=== PATIENT | female | born 1965 | race Caucasian/White ===

== ENCOUNTER 2024-11-20 17:26 | Inpatient (IN) | payer OTHER, SELFPAY ==
[2024-11-20] VITALS (38 sets, daily range): BP systolic 95–129; BP diastolic 54–83; BMI 25.4
[2024-11-20 07:47] LABS: Hematocrit 47.6 % (37.0-47.0); Hemoglobin 15.7 g/dL (12.0-16.0); Mean Corp Hgb Conc. 33.0 g/dL (33.0-37.0); Mean Corpuscular Volume 87.5 fL (81.0-99.0); Platelet Count 406 10^3/uL (130-400); Red Cell Dist. Width 13.0 % (11.5-14.5)
[2024-11-20 08:01] LABS: ALT (SGPT) 58 U/L (0-35); AST (SGOT) 35 U/L (14-36); Albumin 4.7 g/dl (3.5-5.0); Alkaline Phosphatase 79 U/L (38-126); Blood Urea Nitrogen 18 mg/dl (7-17); Calcium 9.9 mg/dl (8.4-10.2); Carbon Dioxide 25 mmol/L (22-30); Chloride 107 mmol/L (98-107); Estimated Creatinine Clearance 61 ml/min; Glucose 86 mg/dl (70-99); INR 1.07; PT 14.2 Sec (11.4-14.6); Potassium 4.2 mmol/L (3.5-5.1); Sodium 138 mmol/L (135-145); Total Protein 7.7 g/dl (6.3-8.2); eGFR > 60.00
[2024-11-20 08:03] LABS: APTT 26.8 Sec (23.4-35.0)
--- NOTE | 2024-11-20 08:59 | W.SUR.PREOP ---
Pre-Operative Surgical Note
-
I have examined this patient prior to the performance of the scheduled procedure.
The patient's condition is unchanged from the time of the current History and
Physical and the patient is able to undergo the scheduled procedure.
[2024-11-20] MEDS: DILAUDID 0.25 MG IV (10:00)
--- NOTE | 2024-11-20 10:37 | OR.RPT ---
Operative Report
Operative Report
Date of Operation: 11/20/2024
Pre Op Diagnosis: Poorly healing right dorsal foot wound
Post Op Diagnosis: Poorly healing right dorsal foot wound
Procedure:
1. Diagnostic right lower extremity arteriogram
2. Selective catheterization popliteal artery from right femoral artery access
3. Ultrasound-guided percutaneous antegrade access to the right superficial femoral artery origin
Surgeon: Tod King III, MD
Associate Account Director: Yung Salvador MD PGY2
Anesthesia: Sedation with local
Fluoroscopy:
11.2 min
24 mGy
3.1 gy.cm2
Complications: None
Estimated Blood Loss: Less than 10 cc
History and Indications for Procedure: 59-year-old female with multiple PAD risk factors and a nonhealing right dorsal foot wound. 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 She was brought to the
operating room for formal arteriogram and possible endovascular intervention.
Procedure in Detail: Linda Sweet was correctly identified and placed supine on the operating table. After adequate induction of anesthesia the bilateral groins were prepped and draped in the usual sterile fashion. A timeout was performed with the
nursing and anesthesia staff confirming the patient's identity as well as the nature and laterality of the procedure.
The right and femoral bifurcation common femoral artery was identified under ultrasound guidance. The artery was patent. The superior and inferior aspects of the femoral head were identified with radiographic guidance and marked at the skin level.
The proposed puncture site was infiltrated with local anesthesia. Under ultrasound guidance we accessed the right superficial femoral artery origin at the femoral bifurcation with a micropuncture needle and upsized to a 5 Fr sheath over a Bentson
wire.
RIGHT LOWER EXTREMITY:
Superficial femoral artery: Patent with no stenosis identified
Popliteal artery: Patent with no stenosis identified
Anterior tibial artery: Patent. Near the ankle the anterior tibial becomes heavily diseased and diminutive. Dorsalis pedis artery appears to be occluded or threadlike in appearance
Tibioperoneal trunk: Flush occluded at the origin
Peroneal artery: Occluded at the origin but reconstitutes proximally and is patent to the ankle. Posterior branch appears to be patent. The more anterior branch appears to be segmentally occluded
Posterior tibial artery: Occluded at its origin but reconstitutes proximally. Sluggish flow but patent to the ankle. Small vessel disease in the plantar distribution is identified
ENDOVASCULAR INTERVENTION: Systemic heparin was administered. Under roadmap guidance I selected the below the knee popliteal artery with a quick cross and Glidewire. Under magnification views examined the tibioperoneal trunk. The tibioperoneal
trunk was indeed flush occluded with no stump to engage. Small collateral branches were identified at the origin of the TP trunk but no stump of artery was present to engage for possible endovascular intervention. The proximal posterior tibial
artery and peroneal artery were identified as reconstituted.
Satisfied with this diagnostic information we then concluded the procedure. All wires and catheters were removed from the 5 German sheath. Protamine was administered. The sheath was secured in place with the plan to pull it in the recovery area.
The patient tolerated the procedure well and was taken to the recovery area in stable condition.
Attestation: I was present and responsible for the entire procedure.
Signed:
Tod King III, MD
Vascular Surgery
[facility]
--- NOTE | 2024-11-20 12:33 | W.PN.UPDATE ---
Update Note
Progress Note Update
Notified of change in Doppler exam in the right foot following RLE angio
Stat duplex obtained and shows prox R SFA occlusion with distal reconstitution
No closure device was used and manual pressure was applied to the 5Fr sheath access site
On exam she is in no distress
No pain in the foot
Gross motor function intact
Dopp pop signal and proximal AT signal at the aden but cannot find Dopp signals in the foot
Will plan to take patient back to the OR now for angio and possible endo intervention on the right SFA occlusion. May need open exploration/repair
Discussed with patient/mother/brother at bedside
[2024-11-20 13:32] LABS: ACT-LR - POC 242 Seconds (116-155)
--- NOTE | 2024-11-20 15:37 | W.PN.UPDATE ---
Update Note
Progress Note Update
Admission H&P:
59 yo female
Admitted to now following RLE angio that was complicated by acute occlusion of the SFA at the antegrade access site
Successful endovascular intervention subsequently to re-establish SFA patency
Planning for DAPT now and on discharge
Observation overnight
Will check right foot Xray at family's request
Check fasting lipid panel
[2024-11-20] MEDS: PLAVIX 300 MG PO (16:02)
[2024-11-20] MEDS: TYLENOL 650 MG PO (16:02)
[2024-11-20] MEDS: NSS 1000 IV (18:07)
[2024-11-20] MEDS: NICODERM TRANSDERMAL 14 MG TRANSDERM (18:08)
--- NOTE | 2024-11-20 19:00 | OR.RPT ---
Operative Report
Operative Report
Date of Operation: 11/20/2024
Pre Op Diagnosis: Acute right superficial femoral artery occlusion following right lower extremity diagnostic arteriogram via antegrade access
Post Op Diagnosis: Acute right superficial femoral artery occlusion following right lower extremity diagnostic arteriogram via antegrade access
Procedure:
1. Balloon angioplasty and stenting of right superficial femoral artery (overlapping LifeStents 5 mm x 150 mm distal; 5 mm x 80 mm proximal)
2. Pharmacomechanical thrombectomy of right distal superficial femoral artery/popliteal artery thrombus using tPA and AngioJet catheter (Solent)
3. Balloon angioplasty of right popliteal artery (4 mm x 100 mm)
4. Diagnostic aortobiiliac arteriogram
5. Diagnostic right lower extremity arteriogram
6. Ultrasound-guided percutaneous access to the left common femoral artery.
Surgeon: Tod King III, MD
[employer] Controller: Yung Salvador MD PGY2
Anesthesia: Sedation with local
Fluoroscopy:
42.8 min
158 mGy
28.55 gy.cm2
Complications: None
Estimated Blood Loss: Less than 10 cc
History and Indications for Procedure: 59-year-old female who had undergone a diagnostic arteriogram of the right lower extremity via antegrade arterial access in the right groin. She had an acute change in her Doppler exam in the recovery area and
a stat duplex ultrasound revealed a right superficial femoral artery occlusion with distal reconstitution. I brought her back to the operating room for emergent endovascular interrogation and intervention.
Procedure in Detail: Linda Cole was correctly identified and placed supine on the operating table. After adequate induction of anesthesia the bilateral groins were prepped and draped in the usual sterile fashion. A timeout was performed with the
nursing and anesthesia staff confirming the patient's identity as well as the nature and laterality of the procedure.
The left common femoral artery was identified under ultrasound guidance. The artery was patent. The superior and inferior aspects of the femoral head were identified with radiographic guidance and marked at the skin level. The proposed puncture site
was infiltrated with local anesthesia. Under ultrasound guidance we accessed the left common femoral artery with a micropuncture needle and upsized to a 5 Fr sheath over a Firework wire. The wire and a Shepherds hook flush catheter were advanced into
the distal abdominal aorta and a diagnostic aorto-biiliac arteriogram was performed:
AORTO-ILIAC ARTERIOGRAM:
Aorta: Patent with no significant stenosis identified
Right common iliac artery: Small diameter. Patent with no significant stenosis identified
Right external iliac artery: Small diameter. Patent with no significant stenosis identified
Left common iliac artery: Small diameter. Patent with no significant stenosis identified
Left external iliac artery: Small diameter. Patent with no significant stenosis identified
Under roadmap guidance using a Glidewire and the Shepherds hook catheter we selected the right common iliac artery followed by the external iliac artery and then the common femoral artery. A catheter was tracked up and over the aortic bifurcation
and placed in the common femoral artery. A diagnostic right lower extremity arteriogram was then performed which demonstrated the following:
RIGHT LOWER EXTREMITY:
Common femoral artery: Patent with no stenosis identified
Profunda femoral artery: Patent with no stenosis identified
Superficial femoral artery: Patent stump but abruptly occluded thereafter.
Popliteal artery: Reconstituted above the knee.
ENDOVASCULAR INTERVENTION: Systemic heparin was administered and a therapeutic ACT was confirmed. Exchanged out for a 6 Fr 45 cm sheath over a Storq wire. Selected the right superficial femoral artery stump under roadmap guidance. A Quickcross
catheter and Glidewire were easily navigated through the SFA stump and throughout the superficial femoral artery without any resistance or doubling up of the wire. An additional arteriogram was performed once we had crossed the proximal occlusion
and were in the mid SFA that appeared to be consistent with a long dissection flap throughout the SFA terminating in the above-knee popliteal artery. We then navigated the wire and catheter into the popliteal artery behind the knee. I then brought
into position a long 4 mm x 220 mm angioplasty balloon. The entire length of superficial femoral artery was treated with this 4 mm balloon, holding it in place at nominal pressure for 3-minute inflation. Subsequent arteriogram demonstrated a now
patent superficial femoral artery but evidence luminal irregularity in the proximal segment near/at the access site was identified and evidence of the dissection flap remained distal to this. I then proceeded with treating the proximal superficial
femoral artery with stenting. Under roadmap guidance I brought into position an 5 mm x 80 mm Life Stent. This was positioned in the desired location under roadmap guidance across the proximal superficial femoral artery and deployed. The stent was
profiled with the 4 mm angioplasty balloon. Subsequent arteriogram demonstrated a patent stent with no filling defects or residual stenosis however the distal dissection flap remained which appeared to be flow-limiting. I then treated the
remainder of the abnormally appearing SFA with a 5 mm x 150 mm Life Stent. The stent was used to treat the entire length of superficial femoral artery down to where the popliteal artery above the knee appeared radiographically normal. The stent
was positioned in the desired location, deployed and profiled with a 4 mm angioplasty balloon.
Subsequent arteriogram revealed a patent stent but there was slow flow distally and there appeared to be a luminal filling defect consistent with thrombus distal to the stent in the above-knee popliteal artery. Thrombus was also identified in the
proximal anterior tibial artery. I navigated the quick cross catheter to the distal popliteal artery below the knee over the wire. 2 mg of tPA were administered into the anterior tibial artery to treat the proximal thrombus. 4 mg of tPA was
administered through the quick cross to the thrombus just distal to the stent. Subsequent arteriogram demonstrated a significantly improved result in the proximal anterior tibial artery with clearance of the thrombus however a filling defect
remained in the popliteal artery distal to the stent. I exchanged out for a [employer] wire and then brought into position the AngioJet Solent catheter. Mechanical thrombectomy was then performed on the popliteal artery using the AngioJet catheter.
Several passes were made under roadmap guidance. Subsequent arteriogram demonstrated an improved result with a now patent popliteal artery and no residual stenosis remaining however there was spasm of the popliteal artery in the treated segment.
Nitro was administered through a quick cross catheter to the popliteal artery which did not immediately resolve the spasm. I then brought into position a 4 mm x 100 mm angioplasty balloon and this was positioned across the popliteal artery under
roadmap guidance. The balloon was gently inflated to subnominal pressure and held in place for 1 minute. Subsequent arteriogram demonstrated a significantly improved result with a patent popliteal artery and no evidence of filling defects or
stenosis. Collateral branches were seen off the popliteal artery that reconstituted the posterior tibial and peroneal arteries. Once again identified was the tibioperoneal trunk occlusion. Also identified was a patent anterior tibial artery
proximally which became severely diseased and occluded distally. The peroneal artery was patent to the ankle. The posterior tibial artery demonstrated sluggish flow but was patent at the ankle with plantar branch flow into the foot. Significant
small vessel disease was once again demonstrated as seen on the initial arteriogram.
Satisfied with this result we concluded the procedure. The sheath tip was pulled back into the left external iliac artery. Protamine was administered. The sheath was pulled and direct manual pressure was held over the left femoral puncture site
until hemostasis was achieved. A sterile dressing was applied.
At the conclusion of the case the patient had a monophasic Doppler signal over the right posterior tibial artery at the ankle. Her foot and toes were pink with intact capillary refill less than 2 seconds.
The patient tolerated the procedure well and was taken to the recovery area in stable condition.
Attestation: I was present and responsible for the entire procedure.
Signed:
Tod King III, MD
Vascular Surgery
[facility]
--- NOTE | 2024-11-20 20:02 | W.PN.UPDATE ---
Update Note
Progress Note Update
Resting comfortably
Right foot is warm/pink. Brisk cap refill
Easily audible right PT signal at the ankle
Bilateral groin sites soft and nontender.
Monitor overnight
DAPT
[2024-11-20] MEDS: HEPARIN 5000 UNITS SC (23:23)
[2024-11-20] MEDS: ASPIR LOW (ENTERIC COATED) 81 MG PO (23:24)
[2024-11-20] MEDS: ZINC 50 MG PO (23:24)
[2024-11-21 03:00] VITALS: BP 112/60
[2024-11-21] MEDS: NSS 1000 IV (06:23)
[2024-11-21 07:38] VITALS: BP 111/70
[2024-11-21 07:55] LABS: Hematocrit 43.5 % (37.0-47.0); Hemoglobin 14.4 g/dL (12.0-16.0); Mean Corp Hgb Conc. 33.1 g/dL (33.0-37.0); Mean Corpuscular Volume 88.8 fL (81.0-99.0); Platelet Count 349 10^3/uL (130-400); Red Cell Dist. Width 12.9 % (11.5-14.5)
[2024-11-21 08:14] LABS: INR 1.13; PT 14.8 Sec (11.4-14.6)
[2024-11-21 08:15] LABS: APTT 28.3 Sec (23.4-35.0)
[2024-11-21 08:51] LABS: ALT (SGPT) 39 U/L (0-35); AST (SGOT) 30 U/L (14-36); Albumin 3.9 g/dl (3.5-5.0); Alkaline Phosphatase 70 U/L (38-126); Blood Urea Nitrogen 13 mg/dl (7-17); Calcium 9.0 mg/dl (8.4-10.2); Carbon Dioxide 16 mmol/L (22-30); Chloride 113 mmol/L (98-107); Estimated Creatinine Clearance 61 ml/min; Glucose 55 mg/dl (70-99); HDL Cholesterol 48 mg/dl; LDL Cholesterol, Calculated 166 mg/dl; Potassium 4.5 mmol/L (3.5-5.1); Sodium 139 mmol/L (135-145); Total Protein 6.1 g/dl (6.3-8.2); Very Low Density Lipoprotein 17 mg/dl (0-30); eGFR > 60.00
[2024-11-21] MEDS: HEPARIN 5000 UNITS SC (09:34)
[2024-11-21] MEDS: PLAVIX 75 MG PO (09:36)
[2024-11-21 10:42] LABS: Glycohemoglobin (HgbA1c) 5.7 % (4.0-5.6)
--- NOTE | 2024-11-21 11:02 | W.PN.VS ---
Today's Communication / Plan
-
dc home
Assessment/Plan
-
59F s/p bilateral lower extremity angiogram POD 1
-ASA/Plavix
-Diet
-DC home
Subjective Data
-
Date of Service: November 21, 2024
Seen and examined at bedside. MARIAMO. Resting comfortably without pain in feet
Objective Data
-
Vital Signs
Temp Pulse Resp BP Pulse Ox
98.1 F 99 16 111/70 98
11/21/24 07:38 11/21/24 07:38 11/21/24 07:38 11/21/24 07:38 11/21/24 07:38
Intake and Output
11/20/24 11/21/24 11/22/24
06:59 06:59 06:59
Intake Total 600 / 600
Balance 600 / 600
Intake:
Oral fluids 240 / 240
IV fluids (Total) 360 / 360
Normosol 200 / 200
normal saline 160 / 160
Other:
How many times incontinent 1
SATURATED amount urine
Number of approximated MODERATE 3
amounts of urine
Lab Results
11/21/24 07:33
11/21/24 07:33
Calcium 9.0 mg/dl (8.4-10.2) 11/21/24 07:33
Total Bilirubin 0.7 mg/dl (0.2-1.3) 11/21/24 07:33
Direct Bilirubin 0.2 mg/dl (0.0-0.4) 11/21/24 07:33
AST 30 U/L (14-36) 11/21/24 07:33
ALT 39 U/L (0-35) H 11/21/24 07:33
Alkaline Phosphatase 70 U/L (38-126) 11/21/24 07:33
Total Protein 6.1 g/dl (6.3-8.2) L D 11/21/24 07:33
Albumin 3.9 g/dl (3.5-5.0) 11/21/24 07:33
Physical Exam
-
bilateral groins: soft, no hematoma
RLE: dorsal foot wound
--- NOTE | 2024-11-21 11:57 | CM ---
Initial assessment completed with pt.
Pt is a 59yr old who was admitted post surgical procedure.
Pt is indep, working, and drives at baseline.
Pt for dc today with no identified needs.
PCP; Hollie Roque
Pharm; [facility]
PLAN; home with no needs Identified
--- NOTE | 2024-11-21 12:58 | W.PN.VS ---
Assessment/Plan
-
59F s/p bilateral lower extremity angiogram POD 1
-ASA/Plavix
-Diet
-DC home
Subjective Data
-
Date of Service: November 21, 2024
seen and examined at bedside. ERIC.
Objective Data
-
Vital Signs
Temp Pulse Resp BP Pulse Ox
98.1 F 99 16 111/70 98
11/21/24 07:38 11/21/24 07:38 11/21/24 07:38 11/21/24 07:38 11/21/24 07:38
Intake and Output
11/20/24 11/21/24 11/22/24
06:59 06:59 06:59
Intake Total 600 / 600
Balance 600 / 600
Intake:
Oral fluids 240 / 240
IV fluids (Total) 360 / 360
Normosol 200 / 200
normal saline 160 / 160
Other:
How many times incontinent 1
SATURATED amount urine
Number of approximated MODERATE 3
amounts of urine
Lab Results
11/21/24 07:33
11/21/24 07:33
Calcium 9.0 mg/dl (8.4-10.2) 11/21/24 07:33
Total Bilirubin 0.7 mg/dl (0.2-1.3) 11/21/24 07:33
Direct Bilirubin 0.2 mg/dl (0.0-0.4) 11/21/24 07:33
AST 30 U/L (14-36) 11/21/24 07:33
ALT 39 U/L (0-35) H 11/21/24 07:33
Alkaline Phosphatase 70 U/L (38-126) 11/21/24 07:33
Total Protein 6.1 g/dl (6.3-8.2) L D 11/21/24 07:33
Albumin 3.9 g/dl (3.5-5.0) 11/21/24 07:33
--- NOTE | 2024-11-21 13:00 | W.DS.TRANS ---
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
-
Discharge Instructions:
Discharge Diagnosis/Procedures Right lower extremity angiogram
Diet As tolerated
Activity No strenuous activity
Driving Restrictions No driving for 48 hours
Bathing Restrictions OK to Shower
Instructions:
Stand-Alone Forms: Vascular Surg Discharge Instr
Changes to Home Medications: Yes
Discharge Medications:
DC Medications w/original date entered in [facility]
acetaminophen 500 mg tablet 500 mg PO Q6H PRN Headache 11/18/24
aspirin 81 mg tablet,delayed release 81 mg PO HS Blood Clot Prevention/Tx 11/18/24
trazodone 50 mg tablet 50 mg PO HS PRN Insomnia 11/18/24
zinc acetate 50 mg (zinc) capsule 50 mg PO HS Supplement 11/18/24
nicotine 14 mg/24 hr daily transdermal patch 1 patch transdermal Q24H Smoking cessation 11/20/24
clopidogrel 75 mg tablet 75 mg PO DAILY Blood clot prevention/tx 90 days #90 tabs 11/21/24
Home Medication Changes
Pending Results: No
Total time spent discharging patient (in min): 10
[2024-11-21 13:05] VITALS: BP 108/66
== END 2024-11-21 13:32 | disposition home or self-care (01) | DRG 271 ==
LOC: 2 NORTH 17:26
PROVIDERS: ADMITTING PHYSICIAN Surgery Vascular Surgery; PRIMARYCARE PHYSICIAN Nurse Practitioner
PROC: 04CM3ZZ Extirpation of Matter from Right Popliteal Artery, Percutaneous Approach (ICD-10-PCS; 2024-11-20)
PROC: B41D1ZZ Fluoroscopy of Aorta and Bilateral Lower Extremity Arteries using Low Osmolar Contrast (ICD-10-PCS; 2024-11-20)
PROC: 047K3EZ Dilation of Right Femoral Artery with Two Intraluminal Devices, Percutaneous Approach (ICD-10-PCS; 2024-11-20)
PROC: B41F1ZZ Fluoroscopy of Right Lower Extremity Arteries using Low Osmolar Contrast (ICD-10-PCS; 2024-11-20)
PROC: 3E05317 Introduction of Other Thrombolytic into Peripheral Artery, Percutaneous Approach (ICD-10-PCS; 2024-11-20)
PROC: 047M3ZZ Dilation of Right Popliteal Artery, Percutaneous Approach (ICD-10-PCS; 2024-11-20)
DX: I70.201 Unspecified atherosclerosis of native arteries of extremities, right leg (principal); I74.3 Embolism and thrombosis of arteries of the lower extremities
CPT/HCPCS: 36246; 37186; 37226; 73630; 75625; 75710; 80053; 80061; 82248; 83036; 85027; 85610; 85730; 86850; 86900; 86901; 93005; 93925; C1725; C1757; C1769; C1876; C1894; J2997; Q9967

== ENCOUNTER → 2024-12-15 08:50 | Outpatient (REF) | payer OTHER, SELFPAY | LOC: RAD 08:50 | PROVIDERS: ATTENDING PHYSICIAN Surgery Vascular Surgery; FAMILY PHYSICIAN Nurse Practitioner | DX: I77.9 Disorder of arteries and arterioles, unspecified (principal) | CPT/HCPCS: 93922; 93925 ==